=== PATIENT | female | born 1965 | race Caucasian/White ===

== ENCOUNTER 2022-11-25 13:25 | Emergency (ER) | payer BC, SELFPAY ==
[2022-11-25] VITALS (12 sets, daily range): BP systolic 118–174; BP diastolic 84–102; PULSE 82–122; RESP 16–26; TEMP 36.6; O2SAT 96–100; BMI 20.4
[2022-11-25] MEDS: FAMOTIDINE/PF 20 MG/2 ML VIAL IV (13:58)
[2022-11-25] MEDS: DIPHENHYDRAMINE HCL 50 MG/ML (1ML) VIAL 25 MG IV (13:58)
[2022-11-25] MEDS: ONDANSETRON PF 4 MG/2 ML VIAL IV (14:10)
--- NOTE | 2022-11-25 14:48 | ED_ITS ---
HPI - Allergic Reaction General Chief complaint: Allergic Reaction Stated complaint: ALLERGIC REACTION/USED EPIPEN NOT HELPING Time Seen by Provider: 11/25/22 13:29 Source: patient Mode of arrival: walk-in Limitations: no limitations History of Present Illness HPI narrative: Patient has allergy to PEG and put in a mouth guard that apparently had PEG in it. 5 minutes later she developed throat soreness and the sensation of shortness of breath. She also had nausea and vomited. She felt better overnight but this morning she developed symptoms again. She gave herself an Epipen injection around 1115am. She came in for evaluation complaining of nausea and pain in her throat. Related Data Previous Rx's Medication Instructions Recorded epinephrine 0.3 mg/0.3 mL 0.3 mg (0.3 mL) IM Q10M PRN 11/25/22 injection, auto-injector (EpiPen) anaphylaxis #2 ea ondansetron 4 mg disintegrating 4 mg PO Q6H PRN nausea and 11/25/22 tablet vomiting #20 tabs Allergies Allergy/AdvReac Type Severity Reaction Status Date / Time bisacodyl [From PEG-Prep] Allergy Severe Verified 11/25/22 13:46 latex Allergy Severe Verified 11/25/22 13:46 polyethylene glycol 3350 Allergy Severe Verified 11/25/22 13:46 [From PEG-Prep] potassium chloride Allergy Severe Verified 11/25/22 13:46 [From PEG-Prep] sodium bicarbonate Allergy Severe Verified 11/25/22 13:46 [From PEG-Prep] sodium chloride Allergy Severe Verified 11/25/22 13:46 [From PEG-Prep] acetaminophen [From Vicodin] Allergy Intermediate Verified 11/25/22 13:46 bacitracin Allergy Intermediate Verified 11/25/22 13:46 [From Neosporin ([id number])] cortisone Allergy Intermediate Verified 11/25/22 13:46 dexamethasone [From TobraDex] Allergy Intermediate Verified 11/25/22 13:46 doxycycline Allergy Intermediate Verified 11/25/22 13:46 gold Au 198 Allergy Intermediate Verified 11/25/22 13:46 hydrocodone [From Vicodin] Allergy Intermediate Verified 11/25/22 13:46 ibuprofen Allergy Intermediate Verified 11/25/22 13:46 Iodinated Contrast Media Allergy Intermediate Verified 11/25/22 13:46 ketorolac [From Toradol] Allergy Intermediate Verified 11/25/22 13:46 methylprednisolone Allergy Intermediate Verified 11/25/22 13:46 naproxen Allergy Intermediate Verified 11/25/22 13:46 neomycin Allergy Intermediate Verified 11/25/22 13:46 [From Neosporin ([id number])] nickel Allergy Intermediate Verified 11/25/22 13:46 polymyxin B Allergy Intermediate Verified 11/25/22 13:46 [From Neosporin ([id number])] polysorbates Allergy Intermediate Verified 11/25/22 13:46 promethazine [From Phenergan] Allergy Intermediate Verified 11/25/22 13:46 Sulfa (Sulfonamide Allergy Intermediate Verified 11/25/22 13:46 Antibiotics) sulfamethoxazole Allergy Intermediate Verified 11/25/22 13:46 [From Bactrim] tobramycin [From TobraDex] Allergy Intermediate Verified 11/25/22 13:46 trimethoprim [From Bactrim] Allergy Intermediate Verified 11/25/22 13:46 venom-honey bee Allergy Intermediate Verified 11/25/22 13:46 dental tooth faroese/paste Allergy Intermediate Uncoded 11/25/22 13:46 enviromental Allergy Intermediate Uncoded 11/25/22 13:46 prolene sutures Allergy Intermediate Uncoded 11/25/22 13:46 Exam Narrative Exam Narrative: Nurses notes and vital signs reviewed and patient is not hypoxic. afebrile General: Well-appearing and in no apparent distress. Skin: Warm, dry, no pallor noted. No rash. Head: Normocephalic, atraumatic. Neck: Supple, non-tender. Eye: Pupils are equal, round and EOMI. No scleral icterus. Ears, Nose, Mouth, and Throat: Oral mucosa is moist, no posterior oropharynx erythema or swelling, uvula is mid-line Cardiovascular: borderline tachycardia. Respiratory: No accessory muscle use or respiratory distress. Lungs are clear to auscultation, no wheezing, rales or rhonchi Musculoskeletal: normal ROM, no extremity edema/swelling GI: Abdomen is soft, non-distended. Normal bowel sounds. No masses appreciated. No tenderness to palpation. No rebound, guarding, or rigidity noted. Neurological: A&O x4. No cranial nerve dysfunction observed. No truncal ataxia. Moves all extremities. Sensation intact. Psychiatric: Anxious but cooperative and interactive. Normal mood and affect. Constitutional Vital Signs, click to edit/add: Last Vital Signs Temp 97.8 F 11/25/22 13:33 Pulse 100 H 11/25/22 14:20 Resp 23 11/25/22 14:20 BP 144/85 H 11/25/22 14:03 Pulse Ox 100 11/25/22 14:20 O2 Del Method Room Air 11/25/22 14:11 Course Vital Signs Vital signs: Vital Signs Temperature 97.8 F 11/25/22 13:33 Pulse Rate 122 H 11/25/22 13:33 Respiratory Rate 24 11/25/22 13:33 Blood Pressure 174/102 H 11/25/22 13:33 Pulse Oximetry 99 11/25/22 13:33 Oxygen Delivery Method Room Air 11/25/22 13:33 Temperature 97.8 F 11/25/22 13:33 Pulse Rate 100 H 11/25/22 14:20 Respiratory Rate 23 11/25/22 14:20 Blood Pressure 144/85 H 11/25/22 14:03 Pulse Oximetry 100 11/25/22 14:20 Oxygen Delivery Method Room Air 11/25/22 14:11 MDM - Allergic Reaction MDM Narrative Medical decision making narrative: peripheral IV established and the patient was given IV Benadryl, IV Pepcid and IV Zofran. He was monitored in the emergency department in improved. She was discharged home with prescriptions for oral dissolvable Zofran and a renewal of her EpiPen. Discharge Plan Discharge Chief Complaint: Allergic Reaction Clinical Impression: Allergic reaction Patient Disposition: Home, Self-Care Time of Disposition Decision: 14:47 Prescriptions / Home Meds: New epinephrine [EpiPen] 0.3 mg/0.3 mL auto-injector 0.3 mg IM Q10M PRN (Reason: anaphylaxis) Qty: 2 0RF Rx Instructions: for 2 doses ondansetron 4 mg tablet,disintegrating 4 mg PO Q6H PRN (Reason: nausea and vomiting) Qty: 20 0RF Instructions: General Allergic Reaction (ED) Stand Alone Forms: Portal Instructions Referrals: Grace Castillo MD [Primary Care Provider] - 1 week
== END 2022-11-25 14:58 | disposition home or self-care (01) ==
PROVIDERS: Emergency Provider Emergency Medicine; PCP Family Medicine
DX: T78.40XA Allergy, unspecified, initial encounter (principal)
CPT/HCPCS: 96374; 96375; 99285

== ENCOUNTER 2022-12-01 11:23 | Outpatient (OUT) | payer BC, SELFPAY ==
--- NOTE | 2022-12-01 11:51 | US_ITS ---
The [address] [address] Patient Name: CAROLINE SULTANA MRN: [id number] date: 1965 Sex: F Assigned Patient Location: LAB Current Patient Location: LAB Accession/Order Number: [id number] Exam Date: 12/01/2022 11:55 Report Date: 12/01/2022 12:54 At the request of: JORGE BETTENCOURT Procedure: US renal BI EXAM: US renal BI HISTORY: Unspecified Abdominal PAin R10.9 COMPARISON: None. TECHNIQUE: Real time ultrasound imaging of the kidneys and bladder. Findings: The right and left kidneys measure 9.6 and 9.5 cm. There is good corticomedullary differentiation bilaterally. No renal stones or collecting system dilatation. No focal mass or perinephric fluid collection. The bladder is partially fluid-filled with a prevoid volume of 65 mL. Unremarkable. US/US renal BI IMPRESSION: 1. Unremarkable sonographic appearance of the kidneys and bladder. Electronically authenticated by: DEIDRA ALEGRE Date: 12/01/2022 12:54
[2022-12-01 12:00] LABS: Bilirubin Urine NEGATIVE (NEGATIVE); Blood Urine NEGATIVE (NEGATIVE); Clarity Urine CLEAR (CLEAR); Color Urine LT. YELLOW (YELLOW); Glucose Urine UA NEGATIVE (NEGATIVE); Ketones Urine NEGATIVE (NEGATIVE); Leukocyte Esterase Urine NEGATIVE (NEGATIVE); Nitrite Urine NEGATIVE (NEGATIVE); Protein Urine NEGATIVE (NEG/TRACE); Urobilinogen Urine 0.2 EU/dL (0.2-1.0)
[2022-12-01 12:01] LABS: Basophils Percent Auto 0.7 % (0.2-2.0); Eosinophils Percent Auto 0.3 % (0.9-7.0); Hematocrit 41.6 % (36.0-48.0); Hemoglobin 14.2 g/dL (12.0-16.0); Immature Granulocytes Abs Auto 0.02 10^3/uL (0.00-0.03); Immature Granulocytes Pct Auto 0.3 % (0.0-0.5); Lymphocytes Absolute Auto 1.5 10^3/uL (1.2-3.8); Mean Corpuscular HGB Conc 34.1 g/dL (29.9-35.2); Mean Corpuscular Hemoglobin 30.6 pg (26.7-34.0); Mean Corpuscular Volume 89.7 fL (81.0-99.0); Mean Platelet Volume 9.6 fL (9.5-13.5); Monocytes Absolute Auto 0.5 10^3/uL (0.3-0.8); Monocytes Percent Auto 9.3 % (1.7-12.0); Neutrophils Absolute Auto 3.7 10^3/uL (1.4-6.5); Neutrophils Percent Auto 63.4 % (43.0-75.0); Platelet Count 314 10^3/uL (150-450); Red Blood Count 4.64 10^6/uL (4.20-5.40); Red Cell Distribution Width 12.8 % (11.0-15.0); White Blood Count 5.8 10^3/uL (4.0-11.0)
[2022-12-01 12:50] LABS: Anion Gap 15.9; BUN Creatinine Ratio 11.3; Calcium 9.3 mg/dL (8.5-10.1); Carbon Dioxide 25.5 mmol/L (21.0-32.0); Chloride 101 mmol/L (98-107); Estimated GFR (African America >60 (>=60); Estimated GFR (Non-African Ame >60 (>=60); Glucose 104 mg/dL (74-106); Potassium 3.4 mmol/L (3.5-5.1); Sodium 139 mmol/L (136-145)
== END 2022-12-01 11:24 | disposition home or self-care (01) ==
PROVIDERS: PCP Family Medicine; Visit Provider Family Medicine
DX: R10.84 Generalized abdominal pain (principal)
CPT/HCPCS: 36415; 76775; 80048; 81003; 85025; 87086

== ENCOUNTER 2022-12-14 14:39 | Outpatient (OUT) | payer BC, SELFPAY ==
--- NOTE | 2022-12-14 14:50 | US_ITS ---
The [address] [address] Patient Name: CAROLINE SULTANA MRN: [id number] date: 1965 Sex: F Assigned Patient Location: US Current Patient Location: US Accession/Order Number: [id number] Exam Date: 12/14/2022 14:52 Report Date: 12/14/2022 17:44 At the request of: JORGE BETTENCOURT Procedure: US appendix EXAM: US appendix HISTORY: Right lower quadrant pain R10.31 COMPARISON: None. TECHNIQUE: Grayscale and color ultrasound FINDINGS: The appendix is not definitively visualized. Normal skin, subcutaneous fat, muscle and lips of bowel. No ascites is observed. US/US appendix IMPRESSION: Nonvisualization of the appendix Electronically authenticated by: VASILIY PEREIRA Date: 12/14/2022 17:44
[2022-12-14 15:49] LABS: Basophils Percent Auto 0.5 % (0.2-2.0); Eosinophils Percent Auto 0.2 % (0.9-7.0); Hematocrit 41.9 % (36.0-48.0); Hemoglobin 14.1 g/dL (12.0-16.0); Immature Granulocytes Abs Auto 0.02 10^3/uL (0.00-0.03); Immature Granulocytes Pct Auto 0.3 % (0.0-0.5); Lymphocytes Absolute Auto 1.5 10^3/uL (1.2-3.8); Lymphocytes Percent Auto 22.8 % (20.5-60.0); Mean Corpuscular HGB Conc 33.7 g/dL (29.9-35.2); Mean Corpuscular Hemoglobin 30.9 pg (26.7-34.0); Mean Corpuscular Volume 91.7 fL (81.0-99.0); Mean Platelet Volume 9.4 fL (9.5-13.5); Monocytes Absolute Auto 0.5 10^3/uL (0.3-0.8); Monocytes Percent Auto 8.1 % (1.7-12.0); Neutrophils Absolute Auto 4.5 10^3/uL (1.4-6.5); Neutrophils Percent Auto 68.1 % (43.0-75.0); Platelet Count 302 10^3/uL (150-450); Red Blood Count 4.57 10^6/uL (4.20-5.40); Red Cell Distribution Width 13.4 % (11.0-15.0); White Blood Count 6.6 10^3/uL (4.0-11.0)
[2022-12-14 15:50] LABS: Bilirubin Urine NEGATIVE (NEGATIVE); Blood Urine NEGATIVE (NEGATIVE); Clarity Urine CLEAR (CLEAR); Color Urine LT. YELLOW (YELLOW); Glucose Urine UA NEGATIVE (NEGATIVE); Ketones Urine NEGATIVE (NEGATIVE); Leukocyte Esterase Urine NEGATIVE (NEGATIVE); Nitrite Urine NEGATIVE (NEGATIVE); Protein Urine NEGATIVE (NEG/TRACE); Urobilinogen Urine 0.2 EU/dL (0.2-1.0); pH Urine 8.5 (5.0-9.0)
[2022-12-14 16:27] LABS: Alanine Aminotransferase 24 U/L (14-59); Albumin Globulin Ratio 1.1; Albumin Level 4.1 g/dL (3.4-5.0); Alkaline Phosphatase 53 U/L (46-116); Anion Gap 10.2; Aspartate Amino Transferase 14 U/L (15-37); BUN Creatinine Ratio 11.5; Bilirubin Total 0.6 mg/dL (0.2-1.0); Calcium 9.1 mg/dL (8.5-10.1); Carbon Dioxide 29.1 mmol/L (21.0-32.0); Chloride 104 mmol/L (98-107); Estimated GFR (African America >60 (>=60); Estimated GFR (Non-African Ame >60 (>=60); Globulin 3.7 g/dL; Glucose 85 mg/dL (74-106); Potassium 3.3 mmol/L (3.5-5.1); Sodium 140 mmol/L (136-145); Total Protein 7.8 g/dL (6.4-8.2)
== END 2022-12-14 14:40 | disposition home or self-care (01) ==
LOC: US 14:40
PROVIDERS: PCP Family Medicine; Visit Provider Family Medicine
DX: R10.31 Right lower quadrant pain (principal); R19.7 Diarrhea, unspecified
CPT/HCPCS: 36415; 76705; 80053; 81003; 85025; 87086

== ENCOUNTER 2022-12-15 12:07 | Outpatient (REF) | payer BC, SELFPAY ==
[2022-12-16 10:01] LABS: C. Difficile PCR NEGATIVE (NEGATIVE)
== END 2022-12-15 12:08 | disposition home or self-care (01) ==
LOC: LAB 12:07
PROVIDERS: PCP Family Medicine; Visit Provider Family Medicine
DX: R19.7 Diarrhea, unspecified (principal)
CPT/HCPCS: 87493